=== PATIENT | male | born 1930 | race Caucasian/White ===

== ENCOUNTER 2016-06-26 05:58 | Emergency (ER) | payer MEDICARE, OTHER ==
[~2016-06-26] VITALS: Ht 177.8 cm; Wt 80.9 kg
[~2016-06-26 05:58] MED LIST: ACETAMINOPHEN-H1 TA2 PO; HCTZ 25MG25 MG PO; OMEGA-3 FISH1200 MG PO; PAROXETINE20 MG PO; PAXIL10 M1; PAXIL10 M1 PO; ST. JOSEPH81 M2 PO; VERAPAMIL HCL80 MG PO; VITAMIN C PURE500 M1 PO; XARELTO10 MG PO
[2016-06-26 07:13] VITALS: BP 148/80
== END 2016-06-26 07:13 | disposition home or self-care (01) ==
LOC: ED 05:58
DX: R58 Hemorrhage, not elsewhere classified (principal); S50.312A Abrasion of left elbow, initial encounter; Z79.82 Long term (current) use of aspirin
CPT/HCPCS: 90714

== ENCOUNTER → 2016-09-08 | Outpatient (CLI) | payer MEDICARE, OTHER | LOC: RAD 13:15 | DX: M25.562 Pain in left knee (principal) ==

== ENCOUNTER 2017-04-03 08:15 | Emergency (ER) | payer MEDICARE ==
[~2017-04-03 08:15] MED LIST changes: -HCTZ 25MG25 MG PO; +HYDROCHLOROTHIA50 M1 PO; +LEADER C 250 MG1 TAB PO; -PAXIL10 M1 PO; +PAXIL20 M1 PO; -VITAMIN C PURE500 M1 PO
[2017-04-03 09:11] LABS: HEMATOCRIT 44.3 % (42.0-52.0); HEMOGLOBIN 14.9 g/dL (13.5-18.0); MEAN CELL VOLUME 95 fl (78-100); MEAN CORPUSCULAR HEMOGLOBIN 32 pg (27-31); MEAN CORPUSCULAR HGB CONC 34 g/dL (33-37); MEAN PLATELET VOLUME 9.4 fl (7.4-10.4); PLATELET COUNT 155 K/mm3 (130-400); RED BLOOD COUNT 4.68 M/mm3 (4.20-5.60); RED CELL DISTRIBUTION WIDTH 13.4 % (11.5-14.5); WHITE BLOOD COUNT 4.9 K/mm3 (4.8-10.8)
[2017-04-03 09:19] LABS: ALBUMIN 4.1 g/dL (3.5-5.0); BUN/CREATININE RATIO 14.8 (6.0-26.0); CALCIUM 9.2 mg/dL (8.4-10.2); POTASSIUM 3.2 mmol/L (3.6-5.0); TOTAL BILIRUBIN 0.7 mg/dL (0.2-1.3); TOTAL PROTEIN 7.4 g/dL (6.3-8.2)
[2017-04-03 09:29] LABS: LYMPHOCYTE 11 % (20-51); MONOCYTE 8 % (3-10); NEUTROPHILS 78 % (42-75)
[2017-04-03] MEDS ORDERED: ZITHROMAX 250M250 MG PO (12:43)
[2017-04-03] MEDS ORDERED: PREDNISONE20 M1 PO (12:43)
[2017-04-03 13:57] VITALS: BP 130/81
[2017-04-03] MEDS ORDERED: VEGETARIAN GLU750 MG PO (15:40)
[2017-04-03] MEDS ORDERED: VITAMIN E200 UNIT (15:40)
[2017-04-03] MEDS ORDERED: FISH OIL 1,2001 EACH PO (15:41)
[2017-04-03] MEDS ORDERED: TRIAMCINOLONE A15 G1 TOP (15:43)
== END 2017-04-03 13:57 | disposition home or self-care (01) ==
LOC: ED 08:15
PROVIDERS: Family Medicine
DX: J40 Bronchitis, not specified as acute or chronic (principal); E87.6 Hypokalemia; E87.1 Hypo-osmolality and hyponatremia; I10 Essential (primary) hypertension; E78.5 Hyperlipidemia, unspecified; Z79.82 Long term (current) use of aspirin
CPT/HCPCS: J0696; J2930; J7030

== ENCOUNTER → 2017-04-19 | Outpatient (CLI) | payer MEDICARE ==
[2017-04-03 13:57] VITALS: BP 130/81
[~2017-04-19] MED LIST changes: +FISH OIL 1,2001 EACH PO; +PREDNISONE20 M1 PO; +TRIAMCINOLONE A15 G1 TOP; +VEGETARIAN GLU750 MG PO; +VITAMIN E200 UNIT; +ZITHROMAX 250M250 MG PO
[2017-04-19 09:57] LABS: HEMATOCRIT 46.1 % (42.0-52.0); HEMOGLOBIN 15.2 g/dL (13.5-18.0); MEAN PLATELET VOLUME 9.6 fl (7.4-10.4); RED BLOOD COUNT 4.85 M/mm3 (4.20-5.60); RED CELL DISTRIBUTION WIDTH 13.3 % (11.5-14.5); WHITE BLOOD COUNT 6.9 K/mm3 (4.8-10.8)
[2017-04-19 10:21] LABS: ALBUMIN 4.1 g/dL (3.5-5.0); BUN/CREATININE RATIO 18.9 (6.0-26.0); CALCIUM 9.5 mg/dL (8.4-10.2); TOTAL BILIRUBIN 0.9 mg/dL (0.2-1.3); TOTAL PROTEIN 7.7 g/dL (6.3-8.2)
[2017-04-19 13:51] LABS: POTASSIUM 2.9 mmol/L (3.6-5.0)
== END ==
LOC: LAB 09:43
PROVIDERS: Family Medicine
DX: E87.6 Hypokalemia (principal); E66.3 Overweight

== ENCOUNTER → 2017-05-20 | Outpatient (CLI) | payer MEDICARE ==
[2017-05-20 14:52] LABS: BUN/CREATININE RATIO 24.7 (6.0-26.0); CALCIUM 9.5 mg/dL (8.4-10.2); POTASSIUM 3.5 mmol/L (3.6-5.0)
== END ==
LOC: LAB 14:22
PROVIDERS: Nurse Practitioner Family
DX: I10 Essential (primary) hypertension (principal); E87.6 Hypokalemia; Z88.8 Allergy status to other drugs, medicaments and biological substances

== ENCOUNTER → 2017-06-23 | Outpatient (CLI) | payer MEDICARE ==
[2017-06-23 09:14] LABS: BUN/CREATININE RATIO 21.1 (6.0-26.0); CALCIUM 9.4 mg/dL (8.4-10.2)
== END ==
LOC: LAB 08:42
PROVIDERS: Nurse Practitioner Family
DX: E87.6 Hypokalemia (principal)

== ENCOUNTER → 2018-08-24 | Outpatient (CLI) | payer MEDICARE | LOC: VAS 13:51 | DX: I08.3 Combined rheumatic disorders of mitral, aortic and tricuspid valves (principal); R07.9 Chest pain, unspecified ==

== ENCOUNTER → 2018-08-25 | Outpatient (CLI) | payer MEDICARE | LOC: RAD 09:48 | DX: G31.9 Degenerative disease of nervous system, unspecified (principal); I67.82 Cerebral ischemia ==

== ENCOUNTER 2019-05-04 09:07 | Outpatient (RCR) | payer MEDICARE, OTHER | END 2019-08-02 | disposition still patient (30) | LOC: CARDREHAB | DX: Z48.812 Encounter for surgical aftercare following surgery on the circulatory system (principal); Z95.5 Presence of coronary angioplasty implant and graft; I25.10 Atherosclerotic heart disease of native coronary artery without angina pectoris ==

== ENCOUNTER → 2020-08-13 | Outpatient (CLI) | payer MEDICARE, OTHER | LOC: VAS 08:43 → RAD 09:00 | DX: I10 Essential (primary) hypertension (principal); R06.02 Shortness of breath ==

== ENCOUNTER → 2020-09-24 | Outpatient (CLI) | payer MEDICARE, OTHER ==
[2020-09-24 09:28] LABS: BASO # 0.04 (0.02-0.10); EOS # 0.16 (0.04-0.40); EOS % 2.3 % (0.0-4.0); HEMATOCRIT 45.9 % (42.0-52.0); HEMOGLOBIN 14.8 g/dL (13.5-18.0); LYMPH# 0.95 (1.50-4.00); MEAN CELL VOLUME 97 fl (78-100); MEAN CORPUSCULAR HEMOGLOBIN 31 pg (27-31); MEAN CORPUSCULAR HGB CONC 32 g/dL (33-37); MEAN PLATELET VOLUME 9.6 fl (7.4-10.4); MONO # 0.74 (0.20-0.80); NEU # 4.97 (1.40-6.50); PLATELET COUNT 186 K/mm3 (130-400); RED BLOOD COUNT 4.72 M/mm3 (4.20-5.60); RED CELL DISTRIBUTION WIDTH 13.2 % (11.5-14.5); WHITE BLOOD COUNT 6.9 K/mm3 (4.8-10.8)
[2020-09-24 09:29] LABS: POTASSIUM 4.7 mmol/L (3.5-5.1)
[2020-09-24 09:30] LABS: ALBUMIN 4.1 g/dL (3.4-4.8)
[2020-09-24 09:31] LABS: CALCIUM 9.6 mg/dL (8.3-10.5)
[2020-09-24 09:32] LABS: TOTAL PROTEIN 7.1 g/dL (6.2-8.1)
[2020-09-24 09:34] LABS: TOTAL BILIRUBIN 0.7 mg/dL (0.2-1.2)
== END ==
LOC: LAB 08:56
PROVIDERS: Family Medicine
DX: Z00.00 Encounter for general adult medical examination without abnormal findings (principal); Z12.5 Encounter for screening for malignant neoplasm of prostate; E78.5 Hyperlipidemia, unspecified